=== PATIENT | male | born 2000 | race Caucasian/White ===

== ENCOUNTER 2023-03-06 09:24 | Emergency (ER) | payer MEDICAID ==
[~2023-03-06] VITALS: Ht 162.6 cm; Wt 98.2 kg
[2023-03-06 10:31] LABS: BASOPHILS # (AUTO) 0.1 X10'3 (0-0.2); EOSINOPHILS # (AUTO) 0.4 X10'3 (0-0.9); EOSINOPHILS % (AUTO) 5.4 % (0-6); HEMOGLOBIN 15.4 g/dl (14.0-17.9); LYMPHOCYTES # (AUTO) 2.1 X10'3 (1.1-4.8); LYMPHOCYTES % (AUTO) 32.4 % (21-51); MEAN CORPUSCULAR HEMOGLOBIN 28.6 PG (27.0-31.0); MEAN CORPUSCULAR HGB CONC 33.4 g/dL (33.0-36.5); MEAN CORPUSCULAR VOLUME 85.6 FL (78-98); MEAN PLATELET VOLUME 7.4 FL (7.4-10.4); MONOCYTES # (AUTO) 0.6 X10'3 (0-0.9); MONOCYTES % (AUTO) 9.4 % (2-12); NEUTROPHILS # (AUTO) 3.4 X10'3 (1.8-7.7); NEUTROPHILS % (AUTO) 51.8 % (42-75); PLATELET COUNT 333 X10'3 (140-440); RED BLOOD COUNT 5.38 X10'6 (4.70-6.10); RED CELL DISTRIBUTION WIDTH 13.6 % (11.5-14.5); WHITE BLOOD COUNT 6.5 X10'3 (4.5-11.0)
[2023-03-06 10:44] LABS: ALANINE AMINOTRANSFERASE 51 U/L (12-78); ALBUMIN/GLOBULIN RATIO 1.1 (1.1-1.5); ALKALINE PHOSPHATASE 62 IU/L (20-180); ANION GAP 8 (8-16); ASPARTATE AMINO TRANSFERASE 23 U/L (10-37); BILIRUBIN,TOTAL 0.3 MG/DL (0.1-1.0); BLOOD UREA NITROGEN 10 MG/DL (7-18); BUN/CREATININE RATIO 10.9 (10.0-20.0); CALCIUM 9.5 MG/DL (8.5-10.1); CHLORIDE 104 MMOL/L (99-107); CREATININE 0.92 MG/DL (0.60-1.10); GLUCOSE 107 MG/DL (70-104); SODIUM 141 MMOL/L (135-145); TOTAL CARBON DIOXIDE 29.5 MMOL/L (24-32); TOTAL PROTEIN 7.7 G/DL (6.4-8.2); eCRCL 107 ML/MIN; eGFR > 90 ML/MIN
[2023-03-06 10:53] LABS: ETHANOL < 10 MG/DL (<10); THYROID STIMULATING HORMONE 2.85 ulU/ml (0.34-4.50)
[2023-03-06 17:12] LABS: BILIRUBIN,URINE NEGATIVE (Neg); CLARITY,URINE CLEAR (Clear); COLOR,URINE YELLOW (Yellow); GLUCOSE, URINE NEGATIVE (Neg); KETONES,URINE NEGATIVE (Neg); LEUKOCYTE ESTERASE ,URINE NEGATIVE (Neg); NITRITES, URINE NEGATIVE (Neg); OCCULT BLOOD,URINE NEGATIVE (Neg); PROTEIN,URINE NEGATIVE (Neg); UROBILINOGEN,URINE 0.2 E.U/dL (0.2-1.0)
[2023-03-06 17:17] LABS: UA COLLECTION TYPE CLN CATCH MIDSTREAM
[2023-03-06 17:20] LABS: URINE AMPHETAMINE SCREEN NEGATIVE (Neg); URINE BARBITUATE SCREEN NEGATIVE (Neg); URINE BENZODIAZEPINES SCREEN NEGATIVE (Neg); URINE CANNABINOID SCREEN NEGATIVE (Neg); URINE COCAINE SCREEN NEGATIVE (Neg); URINE METHADONE SCREEN NEGATIVE (Neg); URINE OPIATE SCREEN NEGATIVE (Neg); URINE PHENCYCLIDINE SCREEN NEGATIVE (Neg)
[2023-03-06] MEDS ORDERED: traZODone 50mg tablet PO ONE (22:20)
[2023-03-06] MEDS ORDERED: traZODone 50mg tablet PO SCH (22:20)
[2023-03-06] MEDS ORDERED: hydrOXYzine 25 MG tablet PO ONE (22:55)
[2023-03-07] MEDS ORDERED: LORazepam 2 mg/ml vial IM ONE (10:50)
[2023-03-07] MEDS ORDERED: haloperidol lactate 5mg/ml inj IM ONE (10:50)
[2023-03-07] MEDS ORDERED: diphenhydrAMINE 50 mg/ml inj IV ONE (10:50)
[2023-03-07] MEDS ORDERED: TRAZ-256 PO (16:54)
[2023-03-07] MEDS ORDERED: LURA20TA8 PO (16:54)
[2023-03-07] MEDS ORDERED: SERT50TA PO (16:54)
[2023-03-07] MEDS ORDERED: LORazepam 1 MG tablet PO ONE (17:05)
[2023-03-07] MEDS ORDERED: traZODone 50mg tablet PO SCH (21:00)
[2023-03-07] MEDS ORDERED: lurasidone 20mg tablet PO SCH (21:00)
[2023-03-07 21:03] VITALS: BP 128/82; PULSE 97; RESP 18; TEMP 98.3; O2SAT 95
[2023-03-08] MEDS ORDERED: sertraline 50mg tablet PO SCH (08:00)
== END 2023-03-07 21:05 | disposition home or self-care (01) ==
LOC: ER 09:25
DX: F32.A Depression, unspecified (principal); Z20.822 Contact with and (suspected) exposure to COVID-19; F41.9 Anxiety disorder, unspecified; R62.50 Unspecified lack of expected normal physiological development in childhood; F31.9 Bipolar disorder, unspecified; Z91.010 Allergy to peanuts
CPT/HCPCS: 36415; 80053; 80305; 80320; 81003; 84443; 85025; 87811; 96372; 96374; 99285; J1200; J1630; J2060; Q0177